=== PATIENT | female | born 1945 ===

== ENCOUNTER 2022-02-12 14:17 | Outpatient (RCR) | payer MEDICARE, BC ==
[~2022-02-12 14:17] MED LIST: NORCO 325 MG-51 TAB PO; VITAMIND3 5000 PO
== END 2022-03-09 | disposition home or self-care (01) ==
LOC: MKS.ESL.PT
DX: C50.411 Malignant neoplasm of upper-outer quadrant of right female breast (principal)

== ENCOUNTER → 2022-03-23 09:11 | Outpatient (RCR) | payer MEDICARE, BC | END | disposition home or self-care (01) | LOC: MKS.ESL.PT 03-10 14:15 | DX: C50.411 Malignant neoplasm of upper-outer quadrant of right female breast (principal); I89.0 Lymphedema, not elsewhere classified ==